=== PATIENT | female | born 1960 | race Two or more races ===

== ENCOUNTER 2017-01-12 22:38 | Emergency (ER) | payer SELFPAY ==
[~2017-01-12] VITALS: Ht 149.9 cm; Wt 59.0 kg
[2017-01-12] MEDS ORDERED: Morphine Sulfate 4mg/ml Inj IVP ONE (22:45)
--- NOTE | 2017-01-12 23:05 | Emergency Room Report ---
History of Present Illness General Chief Complaint: Multiple Trauma/Fall Source: Patient, Family Member, EMS Present Illness HPI Is a 56-year-old female with history blood pressure. She presents with right hip pain. She fell as she was getting into the car. Unable to move. Pain is 10 out of 10. She is crying hysterically. Denies any other complaint. No nausea no vomiting. No head injury. Worse with movement. Came in by EMS. Allergies: Coded Allergies: ASPIRIN (Verified Allergy, Unknown, 01/12/17) CEFAZOLIN (Verified Allergy, Unknown, 01/12/17) Patient History Past Medical History: see triage record, old chart reviewed, HTN Past Surgical History: other Pertinent Family History: none Last Menstrual Period: UNK Now: No Immunizations: other Reviewed Nursing Documentation: PMH: Agreed, PSxH: Agreed Nursing Documentation-PMH Hx Hypertension: Yes Review of Systems Eye: Denies: eye pain, blurred vision ENT: Denies: ear pain, nose congestion, throat swelling Respiratory: Denies: cough, shortness of breath Cardiovascular: Denies: chest pain, palpitations Gastrointestinal: Denies: abdominal pain, diarrhea, nausea, vomiting Musculoskeletal: Reports: joint pain, Denies: back pain Skin: Denies: rash Neurological: Denies: headache, numbness Endocrine: Denies: increased thirst, increased urine Hematologic/Lymphatic: Denies: easy bruising All Other Systems: negative except mentioned in HPI Physical Exam Vital Signs Date Time Temp Pulse Resp B/P (MAP) Pulse Ox O2 Delivery O2 Flow Rate FiO2 01/12/17 22:26 98.8 110 18 178/90 98 vitals with high blood pressure Sp02 EP Interpretation: reviewed, normal General Appearance: well appearing, no apparent distress, alert, mild distress - From pain Head: normocephalic, atraumatic Eyes: bilateral eye PERRL, bilateral eye EOMI ENT: hearing grossly normal, normal pharynx Neck: full range of motion, supple, no meningismus Respiratory: chest non-tender, lungs clear, normal breath sounds Cardiovascular #1: regular rate, rhythm, no murmur Gastrointestinal: normal bowel sounds, non tender, no mass, no organomegaly, no bruit, non-distended Musculoskeletal: back normal, normal range of motion, other - No deformity. Tenderness to the right hip. sensation normal the Psychiatric: mood/affect normal Skin: warm/dry Medical Decision Making Diagnostic Impression: Primary Impression: Contusion of right hip and thigh Qualified Codes: S70.01XA - Contusion of right hip, initial encounter; S70.11XA - Contusion of right thigh, initial encounter ER Course Patient present with a fall and right hip injury. No obvious fracture on x- ray. We'll get CT scan. Patient is extremely anxious. She has a long list of allergies to different medication. Most of them are NSAIDs. I will for morphine but she pulled away as a nurse was flushing the line and was dislodged. We'll hold off any medication except for Tylenol. We'll get CT scan to make sure there is no occult fracture that I am missing on the x-ray. Other X-Ray Diagnostic Results Other X-Ray Diagnostic Results : X-Ray ordered: X-ray right hip # of Views/Limited Vs Complete: 2 View Indication: Pain EP Interpretation: Yes Interpretation: no dislocation, no soft tissue swelling, no fractures Impression: No acute disease Electronically Signed by: Electronically signed by Trent Cain MD CT/MRI/US Diagnostic Results CT/MRI/US Diagnostic Results : Imaging Test Ordered: CT pelvis Impression read by radiologist. Negative. Last Vital Signs Date Time Temp Pulse Resp B/P (MAP) Pulse Ox O2 Delivery O2 Flow Rate FiO2 01/12/17 22:26 98.8 110 18 178/90 98 Status: improved Disposition: HOME, SELF-CARE Condition: Stable Additional Instructions: followup with your Dr. in 7 days. Ice pack to the area. Take Tylenol for pain. Return if worse. TRENT CAIN M.D. Jan 12, 2017 23:05
[2017-01-12] MEDS ORDERED: Acetaminophen 500mg (ES) tab ORAL ONE (23:15)
[2017-01-13 01:00] VITALS: BP 154/6
[2017-01-13 02:03] VITALS: BP 154/6
--- NOTE | 2017-01-13 09:25 | Diagnostic Imaging Report ---
Indication: Right hip pain Technique: CT right hip was performed utilizing automated exposure control without intravenous contrast material. Axial, sagittal and coronal images were generated. CT dose: Total DLP 260 mGycm; CTDI vol 12.6 mGy Comparison: None Findings: No acute fracture is identified. Bilateral hip joint spaces are grossly within normal limits. There is a small fat-containing umbilical hernia. Colonic diverticula are present. The uterus is absent. There is no free fluid in the pelvis. Impression: No acute osseous abnormality. Absent uterus. Small fat-containing umbilical hernia. The CT scanner at [facility] is accredited by the [employer] and the scans are performed using protocols designed to limit radiation exposure to as low as reasonably achievable to attain images of sufficient resolution adequate for diagnostic evaluation.
--- NOTE | 2017-01-13 09:42 | Diagnostic Imaging Report ---
Indication: Right hip pain Technique: XRAY HIP 2V RIGHT Comparison: None Findings: There is no radiographically evident acute fracture or dislocation. Soft tissues are grossly unremarkable. Degenerative changes of the partially visualized spine are seen. Impression: No radiographically evident acute osseous abnormality. Further evaluation recommended as indicated.
== END 2017-01-13 02:29 | disposition home or self-care (01) ==
LOC: EDBD 22:38 → EMR 23:08
DX: S70.01XA Contusion of right hip, initial encounter (principal); S70.11XA Contusion of right thigh, initial encounter; W19.XXXA Unspecified fall, initial encounter; Y92.810 Car as the place of occurrence of the external cause; I10 Essential (primary) hypertension; Z88.1 Allergy status to other antibiotic agents; Z88.6 Allergy status to analgesic agent
CPT/HCPCS: 72192; 99284